=== PATIENT | male | born 1940 | race Caucasian/White ===

== ENCOUNTER 2023-09-18 13:08 | Emergency (ER) | payer MEDICARE, SELFPAY ==
[2023-09-18] VITALS (7 sets, daily range): BP systolic 78–105; BP diastolic 45–54; BMI 26.4
[2023-09-18] MEDS: TYLENOL 650 MG PO (13:26)
[2023-09-18 13:56] LABS: COVID-19 Antigen Negative (Negative)
--- NOTE | 2023-09-18 16:00 | ED.GENMED ---
History of Present Illness
General
Chief Complaint: Cold/Flu/URI Symptoms
Source: patient, spouse and family
Exam Limitations: none
Time Seen by Provider: 09/18/23 15:36
Nursing documentation reviewed up to this point in time: agreed with
Travel History
Have you had any contact with someone who has COVID-19?: Yes
Comment: yes
Do you have any symptoms of coronavirus? Fever > 100 degrees, chills, cough, shortness of breath, sore throat, loss of taste or smell, muscle aches, or headache?: Yes
Symptoms:: fever
History of Present Illness
History of Present Illness:
Patient to ED with complaint of fever, shaking chills, vomiting. Symptoms started this afternoon. states they are in the process of moving her from [facility]. He was diagnosed with pancreatic CA 2022. Whipple surgery 07/13. He had follow up MRI
earlier this bár[place] which confirmed recurance. He had an appointment with oncology at [facility] this AM. Reports becoming ill while there. Prior to arrival here he vomitec 2x. He denies any abdominal pain. Temp on arrival 102. Given 650mg tylenol in
triage.
Past History
Past History
ED Past Medical History: Cancer (pancreatic), GERD, Hypothyroidism and Other (pancreatitis08/2022)
ED Past Surgical History: Other (Whipple procedure 06/2022)
Review of Systems
Review of Systems
Allergies reviewed?: Yes
All Other Systems: ROS reviewed and negative except as documented in HPI and ROS
Constitutional: Reports fever and fatigue
EENT: Reports no symptoms
Respiratory: Reports no symptoms
Cardiac: Reports no symptoms
ABD/GI: Reports nausea and vomiting
: Reports no symptoms
Musculoskeletal: Reports edema (1+BLE (chronic))
Skin: Reports no symptoms
Neurological: Reports weakness
Psychiatric: Reports no symptoms
Phy Exam
General Physical Exam
General Presentation: well appearing
General age: appears stated age
General Skin: warm and dry
General Habitus: normal
General Mental: alert
Cardiovascular Exam
Cardiovascular Exam: regular rate/rhythm
Pulmonary Exam
Pulmonary Exam: no respiratory distress and chest non tender
Breath Sounds: Crackles: left lower and right lower
Gastrointestinal Exam
Gastrointestinal Exam: normal bowel sounds, non tender, soft and no organomegaly
Neurological Exam
Neurological Exam: alert, oriented x3, CN II-XII intact, no motor deficits and no sensory deficits
Musculoskeletal Exam
Musculoskeletal Exam: full ROM and neuro vasc intact
Skin Exam
Skin Exam: normal color, warm/dry and no rash
Psychiatric Exam
Psychiatric Exam: normal mood/affect
Course
Orders/Labs/Results
Orders:
Orders
09/18/23 13:23
Acetaminophen [Tylenol] 650 mg .ROUTE .STK-MED ONE
09/18/23 13:26
Acetaminophen [Tylenol] 650 mg PO NOW STA
09/18/23 13:33
COVID-19 Antigen Urgent
Source: Nasal Swab
09/18/23 15:52
0.9% Sodium Chloride 1000 ml [Nss] 1,000 ml IV BOLUS
CR Chest - 2 Views Urgent
Comment:
Reason For Exam: fever
09/18/23 16:05
Comprehensive Metabolic Panel Urgent
Blood Culture Q30M
TAVO Source: Blood/Venous
Specimen Description:
09/18/23 16:06
Complete Blood Count/With Diff Urgent
Lactic Acid Urgent
Blood Culture Q30M
TAVO Source: Blood/Venous
Specimen Description:
Influenza A+B Rapid Molecular Urgent
TAVO Source: Nasal Swab
Specimen Description:
09/18/23 16:08
Ondansetron Injectable [Zofran] 4 mg IV NOW STA
09/18/23 19:39
Amoxicillin 875 mg/Clav 125 mg [Augmentin 875 mg/125 mg] 1 tablet PO NOW STA
Doxycycline [Vibramycin] 100 mg PO NOW STA
Abnormal Lab Results
09/18/23 09/18/23
16:05 16:06
WBC 4.7 L 10^3/uL
(4.8-10.8)
RBC 2.82 L 10^6/uL
(4.70-6.10)
Hgb 7.9 L g/dL
(13.0-18.0)
Hct 23.2 L %
(39.0-52.0)
Plt Count 101 L 10^3/uL
(130-400)
Absolute Lymphs (auto) 0.1 L 10^3/uL
(1.2-3.4)
Neutrophils % 95.8 H %
(42.2-75.2)
Lymphocytes % 1.3 L %
(20.5-51.1)
Chloride 110 H mmol/L
(98-107)
Carbon Dioxide 21 L mmol/L
(22-30)
BUN 31 H mg/dl
(9-20)
Creatinine 1.5 H mg/dL
(0.7-1.3)
Total Protein 5.8 L g/dl
(6.3-8.2)
Albumin 3.0 L g/dl
(3.5-5.0)
09/18/23 16:06
09/18/23 16:05
Vital Signs
Initial and Last Documented VS:
Initial Vital Signs
Temp Pulse Resp BP Pulse Ox
102.1 F H 70 20 105/46 95
09/18/23 13:14 09/18/23 13:14 09/18/23 13:14 09/18/23 13:14 09/18/23 13:14
Last Documented Vital Signs
Temp Pulse Resp BP Pulse Ox
99.6 F 78 18 87/45 97
09/18/23 19:57 09/18/23 19:57 09/18/23 19:57 09/18/23 19:45 09/18/23 19:57
*Radiology
Radiology exam reviewed: radiology read reviewed
*Pulse Oximetry
Patient hypoxic: no
*Critical Care Note
Total Time (30-74mins, 75-104mins- exclusive of procedures): Not Applicable
Update Note
Update Note:
Patient improved with IVF and tylenol. Requesting discharge home. CXR with possible LLL pneumonia. Will start on augmentin and doxycycline. No hypoxemia. WIll discharge home at pateints request. Given isntructions on s/s to return to ED and he
is agreeable to plan. Labs compared to labs drawn earlier this month in [facility], [facility].
ED Attending Note
-
Portions of this chart may have been created with voice recognition software.� Occasional wrong word or��sound alike� substitutions may have occurred due to the inherent limitations of voice recognition software.
Discharge Plan
Departure
Patient Disposition: Home (Routine Discharge)
Date of Disposition: 09/18/23
Time of Disposition: 19:40
Patient with high blood pressure during this ER visit?: No
Condition: Good
Covid-19: Not Applicable
Discharge Problem:
Pneumonia
Instructions: Pneumonia
Prescriptions:
New
amoxicillin-pot clavulanate 875-125 mg tablet
1 tab PO BID Qty: 20 0RF
doxycycline hyclate 100 mg capsule
100 mg PO BID Qty: 20 0RF
Referrals:
UNKNOWN - PT DOES,NOT KNOW [Family Provider] -
Activity Restrictions/Additional Instructions:
Return to the emergency department immediately for any changes in/worsening of your symptoms.
Interventions
Interventions:
*Risk Screen - Suicide Last Done: 09/18/23 16:16
*General Assessment Last Done: 09/18/23 16:16
*Neglect/Abuse Screening Last Done: 09/18/23 16:16
ED- Fall Risk Assessment Last Done: 09/18/23 16:32
*ED COVID-19 Vaccine History Last Done: 09/18/23 16:16
*Nursing Disposition Last Done: 09/18/23 20:14
ED- Pulmonary Assessment Last Done: 09/18/23 16:32
Discharge Date and Time
Discharge Date/Time: 09/18/23 20:14
Print Language: HONG KONGER
[2023-09-18] MEDS: NSS 1000 IV (16:11)
[2023-09-18] MEDS: ZOFRAN 4 MG IV (16:21)
[2023-09-18 16:26] LABS: % Basophils 0.6 % (0-2); % Immature Granulocytes 0.4 % (0-0.5); % Lymphocytes 1.3 % (20.5-51.1); % Monocytes 1.9 % (1.7-9.3); % Neutrophils 95.8 % (42.2-75.2); Absolute Lymphocytes 0.1 10^3/uL (1.2-3.4); Absolute Monocytes 0.1 10^3/uL (0.1-0.6); Absolute Neutrophils 4.5 10^3/uL (1.4-6.5); Hematocrit 23.2 % (39.0-52.0); Hemoglobin 7.9 g/dL (13.0-18.0); Mean Corp Hgb Conc. 34.1 g/dL (33.0-37.0); Mean Corpuscular Volume 82.3 fL (80.0-94.0); Mean Platelet Volume 9.8 fL (7.4-10.4); Nucleated Red Blood Cells % 0 % (-); Platelet Count 101 10^3/uL (130-400); Red Blood Cell Count 2.82 10^6/uL (4.70-6.10); Red Cell Dist. Width 14.4 % (11.5-14.5); White Blood Cell Count 4.7 10^3/uL (4.8-10.8)
[2023-09-18 16:38] LABS: Lactic Acid 1.3 mmol/L (0.7-2.0)
[2023-09-18 16:41] LABS: ALT (SGPT) 15 U/L (0-50); AST (SGOT) 19 U/L (17-59); Alkaline Phosphatase 87 U/L (38-126); Blood Urea Nitrogen 31 mg/dl (9-20); Calcium 8.4 mg/dl (8.4-10.2); Carbon Dioxide 21 mmol/L (22-30); Chloride 110 mmol/L (98-107); Estimated Creatinine Clearance 35 ml/min; Glucose 83 mg/dl (70-99); Potassium 3.9 mmol/L (3.5-5.1); Sodium 136 mmol/L (135-145); Total Bilirubin 0.6 mg/dl (0.2-1.3); Total Protein 5.8 g/dl (6.3-8.2); eGFR 45.91
[2023-09-18] MEDS: VIBRAMYCIN 100 MG PO (19:44)
[2023-09-18] MEDS: AUGMENTIN 875 MG/125 MG 1 TABLET PO (19:44)
--- NOTE | 2023-09-18 20:03 | EDRN ---
Nida Parkinson aware of pts BP prior to discharge, pt not willing to stay in hospital. Pt taken to bathroom in wheelchair prior to d/c.
== END 2023-09-18 20:14 | disposition home or self-care (01) ==
LOC: EMR 13:08
PROVIDERS: Emergency Medicine; Nurse Practitioner; EMERGENCY PHYSICIAN Emergency Medicine
DX: J18.9 Pneumonia, unspecified organism (principal); E03.9 Hypothyroidism, unspecified; K21.9 Gastro-esophageal reflux disease without esophagitis
CPT/HCPCS: 99283; 96374; 71046; 80053; 83605; 85025; 87040; 87149; 87186; 87205; 87502; 87811

== ENCOUNTER 2023-09-19 04:36 | Inpatient (IN) | payer MEDICARE, SELFPAY ==
[2023-09-19] VITALS (42 sets, daily range): BP systolic 62–137; BP diastolic 49–77; BMI 27.4; BMI 25.9
--- NOTE | 2023-09-19 03:12 | ED.GENMED ---
History of Present Illness
General
Chief Complaint: Blood Pressure Problem
Source: patient
Time Seen by Provider: 09/19/23 03:11
Nursing documentation reviewed up to this point in time: agreed with
Travel History
Have you had any contact with someone who has COVID-19?: No
Do you have any symptoms of coronavirus? Fever > 100 degrees, chills, cough, shortness of breath, sore throat, loss of taste or smell, muscle aches, or headache?: No
History of Present Illness
History of Present Illness:
83-year-old male presents to the emerged part with low blood pressure. Was seen in the emergency department earlier today and was to be admitted but patient refused. Patient initially had fever, chills, vomiting. Patient was recently diagnosed
with pancreatic cancer and had a Whipple procedure 1 year ago. Patient had an MRI recently which showed that the cancer was back. Patient had seen [place] [facility] earlier yesterday he was vomiting while at the office.
Past History
Past History
ED Past Medical History: Cancer (pancreatic), GERD, Hypothyroidism and Other (pancreatitis08/2022)
ED Past Surgical History: Other (Whipple procedure 06/2022)
Review of Systems
Review of Systems
Allergies reviewed?: Yes
All Other Systems: ROS reviewed and negative except as documented in HPI and ROS
Constitutional: Reports no symptoms
EENT: Reports no symptoms
Respiratory: Reports no symptoms
Cardiac: Reports no symptoms
ABD/GI: Reports no symptoms
: Reports no symptoms
Musculoskeletal: Reports no symptoms
Skin: Reports no symptoms
Neurological: Reports dizzy and weakness
Endocrine: Reports no symptoms
Hematologic/Lymphatic: Reports no symptoms
Psychiatric: Reports anxiety
Phy Exam
General Physical Exam
General Presentation: mild distress
General age: appears older than age
General Skin: warm and dry
General Habitus: normal and elderly
General Mental: alert
General Hydration: appears well hydrated
ENT Exam
ENT Exam: EOMI, pharynx normal, neck supple and normocephalic
Eye Exam
Eye Exam: PERRL, cornea clear and conjunctiva normal
Cardiovascular Exam
Cardiovascular Exam: regular rate/rhythm, no edema, no murmur and normal peripheral pulses
Pulmonary Exam
Pulmonary Exam: lungs clear, no respiratory distress, no rales, no crackles, no rhonchi, no stridor, no wheezing and no cough
Gastrointestinal Exam
Gastrointestinal Exam: normal bowel sounds, non tender, soft, no organomegaly, no pulsatile mass and non distended
Neurological Exam
Neurological Exam: alert, oriented x3, no motor deficits and speech normal
Musculoskeletal Exam
Musculoskeletal Exam: full ROM and no edema
Skin Exam
Skin Exam: normal color, warm/dry, no rash and no petechia
Psychiatric Exam
Psychiatric Exam: normal mood/affect
Course
Orders/Labs/Results
Orders:
Orders
09/19/23 03:09
EKG [Electrocardiogram (*1)] Urgent
Reason for Study: Fatigue / Weakness
EKG- Treatment ONCE
Vital Signs
Initial and Last Documented VS:
Initial Vital Signs
Temp Pulse Resp BP Pulse Ox
98.8 F 75 18 87/54 94
09/19/23 02:58 09/19/23 02:58 09/19/23 02:58 09/19/23 02:58 09/19/23 02:58
Last Documented Vital Signs
Temp Pulse Resp BP Pulse Ox
98.8 F 75 18 87/54 94
09/19/23 02:58 09/19/23 02:58 09/19/23 02:58 09/19/23 02:58 09/19/23 02:58
*Critical Care Note
Total Time (30-74mins, 75-104mins- exclusive of procedures): Not Applicable
ED Attending Note
-
Portions of this chart may have been created with voice recognition software.� Occasional wrong word or��sound alike� substitutions may have occurred due to the inherent limitations of voice recognition software.
Discharge Plan
Departure
Patient Disposition: Admit
Date of Disposition: 09/19/23
Time of Disposition: 03:17
Presentation/result/management discussed w/ accepting MD/DO: Hospitalist
Condition: Fair
Discharge Problem:
Weakness, Acute hypotension
Prescriptions:
No Action
amoxicillin-pot clavulanate 875-125 mg tablet
1 tab PO BID Qty: 20 0RF
doxycycline hyclate 100 mg capsule
100 mg PO BID Qty: 20 0RF
Interventions
Interventions:
*Risk Screen - Suicide Last Done: 09/19/23 02:58
*General Assessment Last Done: 09/19/23 02:58
*Neglect/Abuse Screening Last Done: 09/19/23 02:58
ED- Fall Risk Assessment Last Done: 09/19/23 02:58
Discharge Date and Time
Print Language: ICELANDIC
--- NOTE | 2023-09-19 03:52 | HPS.HSE ---
Addendum entered and electronically signed by Mario Montelongo MD 09/19/23 05:00:
Abnormal Lab Results
09/19/23
03:49
RBC 2.40 L
Hgb 6.6 L*
Hct 20.1 L*
MCHC 32.8 L
Absolute Lymphs (auto) 0.2 L
Neutrophils % 91.8 H
Lymphocytes % 2.7 L
Chloride 113 H
Carbon Dioxide 18 L
BUN 36 H
Creatinine 1.8 H
Glucose 101 H
Calcium 7.8 L
Total Protein 5.0 L
Albumin 2.5 L
Interval Hgb dropped
Hypotension
Concern for intra abdominal bleed
- Urgent CT AP ordered
- T & C
- Blood consent
- Blood 1 PRBC
- GS consult
Original Note:
Family Physician
-
Family Physician:
Chief Complaint
-
weak and low BP
History of Present Illness
HPI
83M recently Dxed MRI evidence of CA pancreatic recurrence. He was Dxed with pancreatic CA in 2022 and had Whipple surgery 07/13. Pending appointment with [facility].
He was seen at ER earlier with fever of 102, chills and rigors , vomited and hypotensive. He was treated Tylenol and IVF.
CXR suggest possible LLL pneumonia given on Augmentin and doxycycline and DC'd from ER per patient request.
Then retuned to ER at this hour for weakness and pale.
As per EMS BP 80/40. As low as SBP 60.
Medical History
Past Medical History
Past Medical History: Reports Cancer (recurrent of Pancreatic CA )
Additional Past Medical History:
, GERD, Hypothyroidism and Other (pancreatitis08/2022)
Past Surgical History: Reports Other ( (Whipple procedure 06/2022))
Social History
Tobacco: Non-smoker
Alcohol: None
Drug: None
Family History
Family History: Not pertinent
Allergies / Home Medications
Allergies reflects when Allergies were last updated in [facility].
Home Medications with original date entered in [facility]
Allergy/Medication List:
Allergies
Allergy/AdvReac Type Severity Reaction Status Date / Time
Sulfa (Sulfonamide Allergy Unknown Verified 09/19/23 02:56
Antibiotics)
Home Medications
amoxicillin 875 mg-potassium clavulanate 125 mg tablet 1 tab PO BID #20 tabs 09/18/23
doxycycline hyclate 100 mg capsule 100 mg PO BID #20 caps 09/18/23
Review of Systems
-
Constitutional: Reports Fatigue
EENT: Reports No Symptoms
Respiratory: Reports No Symptoms
Cardiac: Reports No Symptoms
Abdomen/GI: Reports Abdominal Pain and Vomiting
: Reports No Symptoms
Musculoskeletal: Reports No Symptoms
Skin: Reports No Symptoms
Neurological: Reports Weakness
Endocrine: Reports No Symptoms
Hematologic/Lymphatic: Reports No Symptoms
Psych: Reports No Symptoms
Physical Exam
Vital Signs
Vital Signs
Temp Pulse Resp BP Pulse Ox
98.8 F 75 18 87/54 94
09/19/23 02:58 09/19/23 02:58 09/19/23 02:58 09/19/23 02:58 09/19/23 03:24
Physical Exam
General: No Apparent Distress and Conversant
HEENT: NormoCephalic, Anicteric and Other (faial vertiligo )
Respiratory: Clear and Other (wearing O2 ); No Wheezes, Rales or Rhonchi
Cardiac: S1/S2 and Regular Rhythm
GI: Soft, Non Tender, Non Distended and Normal Bowel Sounds
Rectal: Deferred by Provider
Genito-urinary: Deferred by me
Musculoskeletal: No Edema
Skin: Warm
Neuro: AO x 3
Psych: Calm
Laboratory Results
-
see 1srt ER visit labs
Data Reviewed
-
Lab Data: Labs Reviewed by me
Old Records: Reviewed
Impression/Plan
-
Reviewed VS: T max 102,1 . Tc 98.8 HR 75 BP 87/55 POx 94 on RA
Data
WCC 4.7
Hgb 7.9
Plt 101
Cl 110
CO2 21
BUN 31
Cr 1.5
eGFR 45
LA 1.3
09/18/23 CXR:
Findings suggest possibility of small posterior medial left lower lobe infiltrate.
ASSESSMENT & PLAN
Hi grade fever and hypotension
SIRS picture +/_ shock pathophysiology vs chr hypotension
Source of sepsis : Intraabdominal vs. PNA ?
- CT AP
- check PCT
- Empiric IV vanco and Zosyn
- LR IVF sepstic bolus
- Pressor if MAP < 65
- BCx sent on first ER visit
- ID consult
- Business Analysis Analyst consult
Renal insufficiency - suspect MARY due to septic shoclk
- LR IV septic bolus and trend Cr
Recently Dxed MRI evidence of CA pancreatic recurrence.
HX pancreatic CA in 2022 and had Whipple surgery 07/13.
- Pending appointment with [facility].
Severe anemia
No prior data
- trend Hgb
DVT Px: SQH
Code: Full code
ICU
[2023-09-19 04:05] LABS: % Basophils 0.3 % (0-2); % Eosinophils 0.1 % (0-6); % Immature Granulocytes 0.4 % (0-0.5); % Lymphocytes 2.7 % (20.5-51.1); % Monocytes 4.7 % (1.7-9.3); % Neutrophils 91.8 % (42.2-75.2); Absolute Lymphocytes 0.2 10^3/uL (1.2-3.4); Absolute Monocytes 0.3 10^3/uL (0.1-0.6); Absolute Neutrophils 6.5 10^3/uL (1.4-6.5); Mean Corp Hgb Conc. 32.8 g/dL (33.0-37.0); Mean Corpuscular Hgb 27.5 pg (27.0-31.0); Mean Corpuscular Volume 83.8 fL (80.0-94.0); Nucleated Red Blood Cells % 0 % (-); Red Cell Dist. Width 14.5 % (11.5-14.5)
[2023-09-19 04:24] LABS: Hematocrit 20.1 % (39.0-52.0); Hemoglobin 6.6 g/dL (13.0-18.0)
[2023-09-19 04:41] LABS: ALT (SGPT) 21 U/L (0-50); AST (SGOT) 32 U/L (17-59); Albumin 2.5 g/dl (3.5-5.0); Alkaline Phosphatase 80 U/L (38-126); Blood Urea Nitrogen 36 mg/dl (9-20); Calcium 7.8 mg/dl (8.4-10.2); Carbon Dioxide 18 mmol/L (22-30); Chloride 113 mmol/L (98-107); Estimated Creatinine Clearance 30 ml/min; Glucose 101 mg/dl (70-99); Potassium 4.1 mmol/L (3.5-5.1); Sodium 136 mmol/L (135-145); Total Bilirubin 0.6 mg/dl (0.2-1.3); eGFR 36.89
[2023-09-19] MEDS: ZOSYN 50 IV ×4 (05:07→23:29)
[2023-09-19] MEDS: LR 1000 IV ×2 (05:08→19:41)
[2023-09-19 05:24] LABS: Mean Platelet Volume 9.9 fL (7.4-10.4)
[2023-09-19 05:25] LABS: Absolute Neutrophils -Man Diff 6.6 10^3/uL (1.4-6.5); Band Neutrophils 22 % (0-3); Platelet Count 89 10^3/uL (130-400); Segmented Neutrophils 73 % (42-75)
[2023-09-19 05:26] LABS: Lymphocytes 3 % (20-51); Monocytes 2 % (2-9); Normal RBC Morphology No; Platelets Checked Yes
[2023-09-19 05:30] LABS: Anisocytosis 1+
[2023-09-19 05:32] LABS: Acanthocytes 2+; Tear Drop Red Blood Cells Slight; Total Cells Counted 100
--- NOTE | 2023-09-19 05:38 | PTCARENOTE ---
Pt received from ED via stretcher, ICU admit room 3367. Ox3. B/L LE +2 edema. AV paced. Palpable pulses. Bowel sounds hypoactive, last BM 09/16. Per pt no bloody stool or emesis. CT abd/pelv ordered with PO and IV contrast ordered. No urine output,
condom cath applied. Pt uses incontinence briefs at baseline. Pt states that he fell 09/16, small skin tear to right side of forehead. On admission DTIs noted to B/L ischium, dark purple surrounded by pink blanchable area---see wound flowsheet.
[2023-09-19 05:56] LABS: Lactic Acid 0.8 mmol/L (0.7-2.0)
[2023-09-19] MEDS: VANCOCIN 540 MG IV (06:03)
[2023-09-19] MEDS: OMNIPAQUE 50 ML PO (06:30)
--- NOTE | 2023-09-19 06:36 | W.PN.HOSP.TC ---
Addendum entered and electronically signed by Lauren Weiss MD 09/19/23 17:58:
Addendum
reviewed Notes from [facility]
Blood culture positive for E coli, will repeat Blood cultures in am, source likely GI
for paracentesis in am
d/w family at bed side
End
Original Note:
Today's Communication/Plan
-
.
Assessment / Plan
Assessment / Plan
Physical Exam
General: No Apparent Distress and Conversant. Chronically ill looking.
HEENT: Normocephalic, Anicteric.
Respiratory: Limited with no wheezes.
Cardiac: S1/S2
GI: Soft, Non Tender, Non Distended and Normal Bowel Sounds
Rectal: No rectal bleeding
Genito-urinary: No Hematuria
Musculoskeletal: No Edema
Skin: Warm, no scratch velázquez.
Neuro: AO x 3, he followed commands.
Psych: Calm
# Shock , possible combination of hemorrhagic and septic shock
Will treat both for now
Give RBCs , will do total 3 units, recheck H&H after transfusion
Empiric IV ABx, f/w cultures. Check urine test.
CT and chest x ray did not show definitive consolidation, pt denies aspiration event.
Lactic acid normal. No leukocytosis.
# Likely SIRS and he met criteria of Sepsis/ septic shock POA
No recurrent fevers this morning
He is on Nasal O2, he denies underlying lung disease ( never used inhalers/oxygen)
Empiric IV ABx, f/w cultures
# Acute kidney injury
We do not know baseline, will try to get records
c/w IVF
CT A/P no Hydronephrosis
# Recently Dxed MRI evidence of CA pancreatic recurrence.
HX pancreatic CA in 2022 and had Whipple surgery 07/13 down in [place].
- Pending appointment with [facility].
# Thrombocytopenia
# S/P Afib/ Pacemaker and watchman device
Will get records
# Code status, he wanted full code
Total critical time spent to see the patient, examine the patient on the floor, review data and lab results, discuss treatment plan with patient, ICU doctor, nursing staff around 75 minutes
Anticipated Discharge: > 48 hours
Subjective/Interval History
-
Date of Service: September 19, 2023
Pt denies abd pain or sob
Night team: no pain issues, no active bleeding
Objective Data
-
Labs:
Laboratory Results
09/19/23
03:49
WBC 7.0
Hgb 6.6 L*
Hct 20.1 L*
Plt Count 89 L
Sodium 136
Potassium 4.1
Chloride 113 H
Carbon Dioxide 18 L
BUN 36 H
Creatinine 1.8 H
Glucose 101 H
Calcium 7.8 L
Total Bilirubin 0.6
AST 32
ALT 21
Alkaline Phosphatase 80
Vital Signs:
Vital Signs
Temp Pulse Resp BP Pulse Ox
98.8 F 60 17 109/59 98
09/19/23 02:58 09/19/23 05:30 09/19/23 05:30 09/19/23 05:30 09/19/23 05:00
--- NOTE | 2023-09-19 07:50 | W.PN.UPDATE ---
Update Note
Progress Note Update
Full consult to follow:
83M presented yesterday with fever, rigors, Dx PNA. Per pt request he went home with PO abx. took BP at home and called rescue. He admits to lacerations of his fingers getting off the plane 2 days ago with significant bleeding per his
impression. cashier wrapper at the airport responded and achieved hemostasis with external bandages. He denies blood thinners. On admit hypotensive and anemic. Vitals stabilized after PRBC transfusion. Denies abd pain at any point. Dneies n/v. Abd exam benign,
soft nt partially reducible ventral hernia and RIH. Known hx of philipp jonesippdaylin, reportedly positive margins and now with recurrence of panc CA and plan for [facility] adjuvant therapy. Surgery consulted with concern for intra-abdominal bleed. For stat CT
A/P to r/o intra-abdominal bleed.
--- NOTE | 2023-09-19 09:01 | CON.INTV ---
Consultation
Consultation Request
Date/Time Consultation Requested: 09/19/2023444
Date/Time Consultation Performed: 09/19/2023 - 854
Requesting Provider: Dr. Montelongo
Performing Provider: Dr. Valentino
Reason for Consultation: Anemia/Hypotension
Medical History
-
Chief Complaint: Generalized weakness and hypotension
History of Present Illness:
83-year-old male non-smoker with a past medical history of pancreatic cancer with recurrence with a history of Whipple's procedure in June 2022, history of CVA, COPD, history of pancreatitis in August 2022, GERD and hypothyroidism who presents with
chills, low blood pressure and weakness. They had just moved down from [place] down to [place] to be closer to family given patient's history of recurrent pancreatic cancer. They saw a physician at [facility] yesterday and after the
appointment the patient developed chills. thought that he was having anxiety attack so he was given Xanax but he vomited this up. He actually did come to the ER on 09/18/2023, and there was a suspected left lower lobe pneumonia and he was
discharged on Augmentin and doxycycline. His Hb at that time was 7.9 + platelets were 101, with blood cultures collected and COVID antigen and flu swab negative. They had gone home as the patient was hungry and they thought that he would possibly
improve, however he did not and his blood pressure was low in the middle the night with his SBP in the 80s. When he came back to the ER his BP was 87/54, he was saturating 94% on room air and he was afebrile to 98.8 �F. Labs showed anemia to 6.6,
platelets 89, creatinine worsened to 1.8, lactate was normal at 0.8, and given concern for his low blood pressure with anemia he was admitted to the ICU for further care. Critical care services consulted for additional management/recommendations.
Pt seen this AM. He is sleepy this AM and responds appropriately. He is on NC at 3L/min, HR 61, SpO2 98% on 3L/min, BP 107/59. A CT abdomen pelvis was obtained after general surgery was consulted due to possible pneumoperitoneum. There was mild
ascites without typical density for hemorrhagic products, also small bilateral pleural effusions, small pericardial effusion, lower lobe atelectasis, and mild BPH. Also focal bladder wall thickening and a splenic artery aneurysm measuring 2 cm.
is at bedside and I answered all of her questions. Patient currently denies headache, chest pain, abdominal pain, fevers or chills.
PMhx: Pancreatic cancer diagnosed in June 2022 at [facility] in [place] s/p Whipple procedure complicated by recurrence, history of CVA in October 2022, history of pancreatitis in August 2022, GERD, hypothyroidism, BPH
PSHx: Whipple procedure (06/2022)
Past Medical History
Past Medical History: Other (Above as per HPI)
Past Surgical History: Other (Above as per HPI)
Social History
Tobacco: Non-smoker
Alcohol: None
Drug: None
Family History
Family History: Reviewed & Not Pertinent
Allergies / Home Medications
Allergies
Allergy/AdvReac Type Severity Reaction Status Date / Time
Sulfa (Sulfonamide Allergy Unknown Verified 09/19/23 02:56
Antibiotics)
Home Medications
�Medication �Instructions �Recorded �Confirmed �Last Taken �Type
amoxicillin 875 mg-potassium 1 tab PO BID #20 tabs 09/18/23 Unknown Rx
clavulanate 125 mg tablet
doxycycline hyclate 100 mg capsule 100 mg PO BID #20 caps 09/18/23 Unknown Rx
acetaminophen 500 mg tablet 1,000 mg PO Q6H PRN Pain 09/19/23 09/19/23 Unknown History
cyanocobalamin (vitamin B-12) 1,000 mcg PO DAILY 09/19/23 09/19/23 Unknown History
1,000 mcg capsule
escitalopram oxalate 10 mg tablet 10 mg PO DAILY 09/19/23 09/19/23 Unknown History
ferrous sulfate 27 mg iron tablet 27 mg PO DAILY 09/19/23 09/19/23 Unknown History
furosemide 20 mg tablet 40 mg PO DAILY 09/19/23 09/19/23 Unknown History
levothyroxine 112 mcg tablet 112 mcg PO DAILY 09/19/23 09/19/23 Unknown History
nrtsfe-atlnpeea-kamdkog 3 cap PO TID 09/19/23 09/19/23 Unknown History
36,000-114,000-180,000 unit
capsule,delay rel (Creon)
magnesium 500 mg tablet 15 mg PO DAILY 09/19/23 09/19/23 Unknown History
pantoprazole 40 mg tablet,delayed 40 mg PO DAILY 09/19/23 09/19/23 Unknown History
release
potassium chloride 10 mEq 10 meq PO DAILY 09/19/23 09/19/23 Unknown History
tablet,extended release (Klor-Con)
pramipexole 0.5 mg tablet 0.5 mg PO HS 09/19/23 09/19/23 Unknown History
tamsulosin 0.4 mg capsule 0.4 mg PO BID 09/19/23 09/19/23 Unknown History
Review of Systems
-
History Source: Patient
All other systems: Negative unless noted
Vitals / Labs / Diagnostic Testing
Vital Signs
Temp Pulse Resp BP Pulse Ox
98.3 F 71 18 104/55 100
09/19/23 07:36 09/19/23 08:30 09/19/23 08:30 09/19/23 08:00 09/19/23 08:00
Lab Data
09/19/23 03:49
Diagnostic Testing:
Physical Exam
-
HEENT: Normocephalic and Anicteric
Cardiovascular: S1/S2 and Peripheral Edema (+1 lower extremity edema)
Respiratory: Wheeze (negative), Rales (Bibasilar), Rhonchi (negative) and Non-Labored Respirations
GI: Soft, Non Distended and Non Tender
Neurology: AO x 3 and Tremors (n)
Skin: Warm and Dry
General: Comfortable, Fever (negative) and Chills (negative)
Assessment
-
Assessment: 83-year-old male non-smoker with a past medical history of pancreatic cancer with recurrence with a history of Whipple's procedure in June 2022, history of CVA, COPD, history of pancreatitis in August 2022, GERD and hypothyroidism who
presents with chills, low blood pressure and weakness. They had just moved down from [place] down to [place] to be closer to family given patient's history of recurrent pancreatic cancer. They saw a physician at [facility] yesterday and
after the appointment the patient developed chills. thought that he was having anxiety attack so he was given Xanax but he vomited this up. He actually did come to the ER on 09/18/2023, and there was a suspected left lower lobe pneumonia and
he was discharged on Augmentin and doxycycline. His Hb at that time was 7.9 + platelets were 101, with blood cultures collected and COVID antigen and flu swab negative. They had gone home as the patient was hungry and they thought that he would
possibly improve, however he did not and his blood pressure was low in the middle the night with his SBP in the 80s. When he came back to the ER his BP was 87/54, he was saturating 94% on room air and he was afebrile to 98.8 �F. Labs showed anemia
to 6.6, platelets 89, creatinine worsened to 1.8, lactate was normal at 0.8, and given concern for his low blood pressure with anemia he was admitted to the ICU for further care. Critical care services consulted for additional
management/recommendations.
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
Impression:
#Sepsis with E. coli bacteremia, suspicious for intra-abdominal source, possibly related to his history of recurrent pancreatic cancer s/p Whipple's procedure
#Acute anemia - doubt he has hemoperitoneum and this is likely due to sepsis with bone marrow suppression
#Thrombocytopenia
#Bilateral pleural effusions with small pericardial effusion and +1 lower extremity edema, suspicious for volume overload
#Elevated creatinine suspicious for MARY (however creatinine and BUN baseline unknown, but apparently he has a history of CKD)
#Hypoalbuminemia
#Abnormal CXR with retrocardiac opacity likely due to atelectasis in setting of small pleural effusions (seen on CT Abd/Pelvis)
#Ventral + right inguinal hernias without evidence for obstruction
#Reported history of COPD, quit smoking tobacco in 2022
#Recurrent pancreatic cancer s/p Whipple's procedure
Plan:
- Broad-spectrum antibiotics with ID consult
� Follow-up blood cultures species and sensitivities
- Consult IR for paracentesis to rule out SBP
� Trend H&H and transfuse to keep Hb >7 g/dL, plt >50 K
- General surgery consulted - recs appreciated
- Gentle IVF as he has bilateral pleural effusions, small pericardial effusion and has +1 lower extreme edema so we will need to caution against worsening hypervolemia
- Maintain SpO2 >90-94%
- Maintain MAP>65
- Replete electrolytes with K>4, Mg>2
- Maintain euglycemia with goal BG 140-180
- Renally dose all medications/ABx
- Ok to resume his home meds
- Ok for PO diet
- prn nebulized bronchodilators
- Incentive spirometer
- DVT ppx - in setting of acute anemia, hold chemical DVT prophylaxis for now until Hb stable for >48 to 72 hours and there is no clinical signs of bleeding
Critical care statement: A total of 40 minutes of critical care time was provided for this patient today. This includes management of unstable vital signs, evaluation of the patient at bedside, reviewing the patient's pertinent medical records
including radiographs, microbiology, laboratory evaluations, and discussion with primary team, consultants, pharmacy, nutrition, physical therapy, case management, charge nurse, critical care nursing, and respiratory therapy.
Data:
CT Abd/Pelvis with OR andn IV contrast 09-19-2023:
Bowel containing ventral and right inguinal hernias. No evidence of intestinal obstruction. Oral contrast reaches the right colon. Fluid is associated with each hernia. Therefore, incarceration/strangulation cannot be excluded.
Mild abdominopelvic fluid probably ascites. Not the typical density for hemorrhagic products. However, all blood cannot be excluded..
Small pericardial effusion.
Small bilateral pleural effusions.
Mild left lower lung and minimal right lower lobe probable atelectasis.
Mild diverticulosis. No evidence of acute diverticulitis.
Mild fecal material in the colon.
Focal bladder wall thickening. Cystoscopy recommended when the patient is able
Mild prostate hypertrophy.
Postsurgical change of the stomach.
Splenic artery aneurysm measuring 2 cm.
--- NOTE | 2023-09-19 09:13 | CON.ID ---
Consultation
-
Date/Time Consultation Requested: 09/19/23 4:45
Date/Time Consultation Performed: 09/19/23 9:13
Requesting Provider: Dr Montelongo
Performing Provider: Dr Villatoro
Reason for Consultation: SIRS with shock syptome PNA or intraabdominal
Chief Complaint / Past History
Chief Complaint
weak and low BP
History of Present Illness
Mr Tesfaye is an 83 year old male with history of pancreatic cancer s/p whipple 07/13 with positive margins and due to recurrent strokes he was not a candidate for chemotherapy, he was recently diagnosed with recurrence - pending start of adjuvant
therapy. He presented here last evening for fever to 102, chills, rigors, vomiting and hypotension. Patient was seen in the ER and initially requested DC he was prescribed augmentin and doxycycline for possible LLL pneumonia however returned later
the same evening for weakness, pallor and hypotension via EMS after noted hypotension at home and called EMS.
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
small skin tear on the scalp.
Of note they just moved up from [place] in [place] and past health care was at [facility]. Currently staying in a hotel pending finding a place to stay.
Since arrival, tmax 102.1 orally no further fevers, hypotension resolved with IVF - he has not required pressors thus far, wbc on first visit 4.7 today 7.0, hgb 7.9 this am 6.6, plt 89, L shift is noted, cr unknown baseline yesterday 1.5 today 1.8,
covid ag neg, CXR possible LLL infiltrate, CT ab/p: mild left lower lobe and minimal right lower lobe consolidation probably atelectasis, questionable ventral and inguinal hernia strangulation, mild ascites/pericardial effusion/pleural effusions,
focal bladder wall thickening - in sum no definitive focal infectious process, Seen by gen surgery with concern for GI bleeding and CT was ordered. Currently on vancomycin and zosyn, blood cultures x2 at the same time are positive for GNR in both
aerobic and anaerobic bottles, ID is consulted for assistance with managment.
Past History
Additional Past Medical History:
hemorrhagic stroke x3, GERD, Hypothyroidism and Other (pancreatitis 08/2022)
Additional Past Surgical History:
Whipple procedure 06/2022, pacemaker, watchman
Allergy History:
Sulfa (Sulfonamide Antibiotics) Allergy (Verified 09/19/23 02:56)
Unknown
Medications Reviewed: Yes
Social History
Tobacco: Non-Smoker
Alcohol: None
Personal:
Living: Other (Hotel - pending finding housing)
Family History
Family History: Not Pertinent
Review of Systems
Review of Systems
General: Fever and Chills
unable to obtain due to the condition of the patient - obtunded
Vital Signs
Temp Pulse Resp BP Pulse Ox
98.3 F 71 18 104/55 100
09/19/23 07:36 09/19/23 08:30 09/19/23 08:30 09/19/23 08:00 09/19/23 08:00
Physical Exam
Physical Exam
Constitutional: No Acute Distress
Cardiovascular: Regular Rate and S1/S2; Negative Murmur or Rub
Pulmonary: Clear and Symmetric; Negative Wheezes, Rales or Rhonchi
Gastrointestinal: Soft, Non Tender, Non Distended and Normal Bowel Sounds
Genito-Urinary: Other (R inguinal hernia supple, no erythema, warmth or tenderness; ventral hernia reducible, not tender or firm or red)
Skin: Warm and Dry; Negative Rash or Jaundice
Wound: Other (small lacerations fingers, scalp and L knee - no erythema, warmth, tenderness or drainage from any of these)
Neurological: Negative Awake
Lines: Other (pacemaker - no erythema, warmth tenderness or drainage)
Lab / Diagnostic Study Results
05/29/24 03:49
Abs Immat Gran (auto) 0.0 10^3/uL (0-0.05) 09/19/23 03:49
Absolute Neuts (auto) 6.5 10^3/uL (1.4-6.5) 09/19/23 03:49
Absolute Lymphs (auto) 0.2 10^3/uL (1.2-3.4) L 09/19/23 03:49
Absolute Monos (auto) 0.3 10^3/uL (0.1-0.6) 09/19/23 03:49
Absolute Basos (auto) 0.0 10^3/uL (0-0.2) 09/19/23 03:49
Total Counted 100 09/19/23 03:49
Immature Gran % 0.4 % (0-0.5) 09/19/23 03:49
Neutrophils % 91.8 % (42.2-75.2) H 09/19/23 03:49
Lymphocytes % 2.7 % (20.5-51.1) L 09/19/23 03:49
Monocytes % 4.7 % (1.7-9.3) 09/19/23 03:49
Eosinophils % 0.1 % (0-6) 09/19/23 03:49
Basophils % 0.3 % (0-2) 09/19/23 03:49
Abs Neuts (Manual) 6.6 10^3/uL (1.4-6.5) H 09/19/23 03:49
Segmented Neutrophils 73 % (42-75) 09/19/23 03:49
Band Neutrophils 22 % (0-3) H 09/19/23 03:49
Lymphocytes (Manual) 3 % (20-51) L 09/19/23 03:49
Lactic Acid Cancelled 09/19/23 16:45
Assessment / Plan
Gram Negative Bacteremia
MARY +/- CKD
Anasarca
Recurrence of pancreatic cancer
- gram negative bacteremia typically does not require repeat blood cultures; patient not actively on immunosuppressive agents and shock responding to IVF, follow clinically
- will obtain UA reflex to culture, aerobic pathogen may be overgrowing the anaerobic bottle as well
- sputum culture ordered - though most likely atelectasis based on CT scan, patient may not be able to provide a sample
- agree with zosyn at this time, stop vancomycin
- follow clinically
[2023-09-19] MEDS: LR IV (09:50)
[2023-09-19] MEDS: NSS (PRESERVATIVE FREE) 10 ML IV (09:50)
[2023-09-19] MEDS: PROTONIX IV 40 MG IV (09:50)
--- NOTE | 2023-09-19 10:10 | PTCARENOTE ---
1 unit PRBC completed. Second unit requested from blood bank
--- NOTE | 2023-09-19 11:13 | CM ---
CM following re: discharge planning.
Discussed in Rounds, reviewed pt's chart, met with pt. Pt's daughter Diana and son in law at bedside.
Pt is an 83 year old male, admitted with primary dx of Shock , possible combination of hemorrhagic and septic shock.
Per daughter, pt just moved to [place] from [place] with a plan to move to [facility] in [facility] in September and pt will stay temporary in son's house in [place]: [place], with no steps, there is a ramp. Per daughter, all paperwork to move to
[facility] in [place] has been completed and both pt and his spouse are approved to move in there in September.
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 Per daughter, pt is very weak right now and family feels that pt might be able to go to a SNF for a short term rehab or pt might need VN services at
discharge. Per daughter, pt has 3 supportive children and they live in [facility]. Per daughter, if pt qualifies for SNF she prefers [facility].
PT and OT evaluations requested to determine a level of care at discharge.
PCP: Per daughter, pt just moved to [place] and she is working on getting PCP
Pharmacy: [facility].
D/C plan: Plan A: [facility] if recommended by PT/OT. Plan B: home to son's house in [facility] with VN services.
CM will follow with discharge plan updates as hospitalization progresses
[2023-09-19 11:19] LABS: Urine Albumin Trace (Neg - Trace); Urine Bilirubin 1+ (Negative); Urine Character Clear (Clear); Urine Color Amber; Urine Glucose Negative (Negative); Urine Ketone Trace (Negative); Urine Leukocyte Trace (Negative); Urine Nitrite Negative (Negative); Urine Occult Blood Trace (Negative); Urine Specific Gravity 1.015 (<1.030); Urine Urobilinogen 1+ (Neg - 1+)
--- NOTE | 2023-09-19 12:00 | PTCARENOTE ---
Pt drowsy. Second unit of PRBC infusing at this time. No void today. Pt's stated he felt urge but unable to go last night. Bladder scan showed >320. Straight cath for 250ml travis urine. All other assessments unchanged.
[2023-09-19 12:26] LABS: Urine Bacteria Few (Negative)
[2023-09-19 16:15] LABS: Hematocrit 29.3 % (39.0-52.0); Mean Corp Hgb Conc. 33.4 g/dL (33.0-37.0); Mean Corpuscular Hgb 28.7 pg (27.0-31.0); Mean Corpuscular Volume 85.7 fL (80.0-94.0); Platelet Count 80 10^3/uL (130-400); Red Blood Cell Count 3.42 10^6/uL (4.70-6.10); Red Cell Dist. Width 14.6 % (11.5-14.5); White Blood Cell Count 6.2 10^3/uL (4.8-10.8)
[2023-09-19 16:17] LABS: Hemoglobin 9.8 g/dL (13.0-18.0)
--- NOTE | 2023-09-19 17:34 | PTCARENOTE ---
Pt back from IR s/p paracentesis with 900ml off per report. bandaid on right abdomen.
received 2 units PRBC total. Repeat Hgb 9.8. notified. 3rd unit PRBC canceled.
Received pt this am V-paced with occasional a-paced beats. Now Afib with occasional V-paced beats. HR 65-67
O2 weaned to 2L NC.
Increased lower extremity edema. Left > right. Legs elevated.
Cathed for 180ml travis urine.
All other assessments unchanged.
[2023-09-19 17:40] LABS: Body Fluid Albumin 1.3 g/dl; Body Fluid LDH < 90 U/L
[2023-09-19 17:47] LABS: Body Fluid Polymorphonuclear 40.2 %; Body Fluid WBC 920 /CUMM
[2023-09-19 17:48] LABS: Body Fluid Mononuclear 59.8 %
[2023-09-19 17:49] LABS: Body Fluid Second Tech EYM
[2023-09-19] MEDS: ZENPEP DELAYED RELEASE CAPSULE 3 CAPSULE PO (18:07)
[2023-09-19] MEDS: LEXAPRO 10 MG PO (18:07)
--- NOTE | 2023-09-19 18:39 | CON.GS ---
Consultation
-
Requesting Provider: Jayda
Performing Provider: Tye
Reason for Consultation: Anemia
Medical History
-
Chief Complaint: weakness, pallor
History of Present Illness:
83M presented yesterday with fever, rigors, Dx PNA. Per pt request he went home with PO abx. took BP at home and called rescue. He admits to lacerations of his fingers getting off the plane 2 days ago with significant bleeding per his
impression. optomechanical engineer at the airport responded and achieved hemostasis with external bandages. He denies blood thinners. Denies abd pain at any point. Denies n/v
Allergies / Home Medications
Allergy/AdvReac Type Severity Reaction Status Date / Time
Sulfa (Sulfonamide Allergy Unknown Verified 09/19/23 02:56
Antibiotics)
�Medication �Instructions �Recorded �Confirmed �Type
amoxicillin 875 mg-potassium 1 tab PO BID #20 tabs 09/18/23 Rx
clavulanate 125 mg tablet
doxycycline hyclate 100 mg capsule 100 mg PO BID #20 caps 09/18/23 Rx
acetaminophen 500 mg tablet 1,000 mg PO Q6H PRN Pain 09/19/23 09/19/23 History
cyanocobalamin (vitamin B-12) 1,000 mcg PO DAILY 09/19/23 09/19/23 History
1,000 mcg capsule
escitalopram oxalate 10 mg tablet 10 mg PO DAILY 09/19/23 09/19/23 History
ferrous sulfate 27 mg iron tablet 27 mg PO DAILY 09/19/23 09/19/23 History
furosemide 20 mg tablet 40 mg PO DAILY 09/19/23 09/19/23 History
levothyroxine 112 mcg tablet 112 mcg PO DAILY 09/19/23 09/19/23 History
ocdibt-pphmhhce-qnefpkw 3 cap PO TID 09/19/23 09/19/23 History
36,000-114,000-180,000 unit
capsule,delay rel (Creon)
magnesium 500 mg tablet 15 mg PO DAILY 09/19/23 09/19/23 History
pantoprazole 40 mg tablet,delayed 40 mg PO DAILY 09/19/23 09/19/23 History
release
potassium chloride 10 mEq 10 meq PO DAILY 09/19/23 09/19/23 History
tablet,extended release (Klor-Con)
pramipexole 0.5 mg tablet 0.5 mg PO HS 09/19/23 09/19/23 History
tamsulosin 0.4 mg capsule 0.4 mg PO BID 09/19/23 09/19/23 History
Review of Systems
-
A 10 point review of systems was completed, and was negative except as per HPI.
Physical Exam
Vital Signs
Temp Pulse Resp BP Pulse Ox
99.5 F 60 22 100/49 100
09/19/23 16:25 09/19/23 18:30 09/19/23 18:30 09/19/23 18:00 09/19/23 18:30
09/18/23 09/19/23 09/20/23
06:59 06:59 06:59
Actual Weight 76.2 kg
Body Mass Index (BMI) 25.9
Lab Results
09/19/23 03:49
WBC 6.2 10^3/uL (4.8-10.8) 09/19/23 15:54
Hgb 9.8 g/dL (13.0-18.0) L D 09/19/23 15:54
Hct 29.3 % (39.0-52.0) L 09/19/23 15:54
Plt Count 80 10^3/uL (130-400) L 09/19/23 15:54
Abs Immat Gran (auto) 0.0 10^3/uL (0-0.05) 09/19/23 03:49
Neutrophils % 91.8 % (42.2-75.2) H 09/19/23 03:49
Physical Exam
General: Well Developed, Well Nourished and No Apparent Distress
GI: Soft, Non Tender and Non Distended
Skin: Warm and Dry
Neuro: AO x 3
Psych: Calm
Data Reviewed
-
CT Scan: Image Personally Visualized and interpreted, Report Reviewed by me and Discussed with Physician
Labs: Labs Reviewed by me and Discussed with Physician
Assessment / Plan
-
83M with anemia of unknown etiology in setting of recurrent pancreatic CA and thrombocytopenia, PNA and bacteremia
On admit hypotensive and anemic.
Vitals stabilized after PRBC transfusion.
Abd exam benign, soft nt partially reducible ventral hernia and RIH.
Known hx of robo whipple, reportedly positive margins and now with recurrence of panc CA and plan for [facility] adjuvant therapy.
Surgery consulted with concern for intra-abdominal bleed.
Underwent CT with no findings concerning for intra-abdominal nor retroperitoneal bleed.
Appropriate response to transfusion
Likely no role for surgery here, pls call with questions
[2023-09-19] MEDS: FLOMAX 0.400000000000000022 MG PO (19:40)
[2023-09-19] MEDS: FLEXBUMIN 100 IV (19:40)
--- NOTE | 2023-09-19 20:00 | PTCARENOTE ---
Pt resting comfortably no c/o pain. Updated on plan of care. Repeat hgb at 2100. WISE noted, lungs clear, aside from LLL crackles. 2L, 97%. Tolerating regular diet. Due to void by midnight. Will bladder scan as ordered.
--- NOTE | 2023-09-19 23:00 | PTCARENOTE ---
Pt incontinent of urine moderate amount. CHG provided. Resting comfortably. Condom Cath applied. Will monitor.
[2023-09-19] MEDS: MIRAPEX, GENERIC 0.5 MG PO (23:29)
[2023-09-20] VITALS (26 sets, daily range): BP systolic 95–143; BP diastolic 50–89; PULSE 60; O2SAT 99; BMI 26.6
[2023-09-20] MEDS: ZOSYN 50 IV ×3 (05:47→18:10)
[2023-09-20] MEDS: SYNTHROID 112 MCG PO (05:47)
--- NOTE | 2023-09-20 06:04 | PTCARENOTE ---
No change in previous assessment. AM labs pending. Will monitor.
[2023-09-20 06:10] LABS: Hematocrit 25.9 % (39.0-52.0); Mean Corp Hgb Conc. 34.7 g/dL (33.0-37.0); Mean Corpuscular Hgb 29.3 pg (27.0-31.0); Mean Corpuscular Volume 84.4 fL (80.0-94.0); Mean Platelet Volume 10.7 fL (7.4-10.4); Platelet Count 72 10^3/uL (130-400); Red Blood Cell Count 3.07 10^6/uL (4.70-6.10); Red Cell Dist. Width 14.7 % (11.5-14.5)
--- NOTE | 2023-09-20 06:15 | W.PN.HOSP.TC ---
Today's Communication/Plan
-
.
Assessment / Plan
Assessment / Plan
Physical Exam
General: No Apparent Distress and Conversant. Chronically ill looking.
HEENT: Normocephalic, Anicteric.
Respiratory: Limited with no wheezes.
Cardiac: S1/S2
GI: Soft, Non Tender, Non Distended and Normal Bowel Sounds
Rectal: No rectal bleeding
Genito-urinary: No Hematuria
Musculoskeletal: No Edema
Skin: Warm, no scratch velázquez.
Neuro: AO x 3, he followed commands.
Psych: Calm
# Septic shock/ E Coli bacteremia
Source can be GI/
Repeat Blood culture today
No hypotension
c/w IV Abx
Will have US guided paracentesis, no abd distention this morning, might be not feasible to aspirate , will f/w IR doctor.
No abd pain or nausea, tolerating diet
CT and chest x ray did not show definitive consolidation, pt denies aspiration event.
Lactic acid normal. No leukocytosis.
Appreciate ICU doctor/ ID doctor input
# Hemorrhagic shock, resolved. s/p 2 units of RBCs. HGB around 9.
# hyponatremia, c/w IVF
# Acute kidney injury, creatinine at 1.9
CKD stage IIIB ( creatinine 1.4-1.7 in 2022)
Start IVF
CT A/P no Hydronephrosis
# Urinary retention, c/w Flomax BID, monitor.
# Recently Dxed MRI evidence of CA pancreatic recurrence.
HX pancreatic CA in 2022 and had Whipple surgery 07/13 down in [place].
- Saw oncology at [facility], no plan for chemotherapy.
# Hx of necrotizing pancreatitis in 2022 two months after Whipple
# Hx of anastomotic ulcer s/p clipping in 2022. c/w IV PPI.
# Thrombocytopenia
# S/P Afib/ Pacemaker and watchman device
# Hx of hemorrhagic stroke, off AC
# Code status, he wanted full code
Total time spent to see the patient, examine the patient on the floor, review data and lab results, discuss treatment plan with patient, ICU doctor, family, nursing staff around 59 minutes
Anticipated Discharge: > 48 hours
Subjective/Interval History
-
Date of Service: September 20, 2023
He had good night with no pain issues, no fevers
Had mild retention but no dysuria
Objective Data
-
Labs:
Laboratory Results
09/19/23 09/20/23
21:09 05:43
WBC 6.0
Hgb 9.0 L 9.0 L
Hct 25.9 L
Plt Count 72 L
Sodium Pending
Potassium Pending
Chloride Pending
Carbon Dioxide Pending
BUN Pending
Creatinine Pending
Glucose Pending
Calcium Pending
Total Bilirubin Pending
AST Pending
ALT Pending
Alkaline Phosphatase Pending
Vital Signs:
Vital Signs
Temp Pulse Resp BP Pulse Ox
99.9 F 64 13 113/64 97
09/20/23 00:18 09/20/23 05:45 09/20/23 05:45 09/20/23 05:00 09/20/23 05:45
I&O
09/18/23 09/19/23 09/20/23
06:59 06:59 06:59
Intake Total 0 / 500 3270 / 3270
Output Total 430 / 430
Balance 0 / 500 2840 / 2840
[2023-09-20 06:37] LABS: ALT (SGPT) 20 U/L (0-50); AST (SGOT) 24 U/L (17-59); Albumin 2.5 g/dl (3.5-5.0); Alkaline Phosphatase 79 U/L (38-126); Blood Urea Nitrogen 42 mg/dl (9-20); Calcium 7.9 mg/dl (8.4-10.2); Carbon Dioxide 18 mmol/L (22-30); Chloride 109 mmol/L (98-107); Estimated Creatinine Clearance 28 ml/min; Glucose 94 mg/dl (70-99); Phosphorus 3.5 mg/dl (2.5-4.5); Potassium 4.1 mmol/L (3.5-5.1); Sodium 134 mmol/L (135-145); Total Bilirubin 1.3 mg/dl (0.2-1.3); Total Protein 5.1 g/dl (6.3-8.2); eGFR 34.57
[2023-09-20] MEDS: FLOMAX 0.400000000000000022 MG PO ×2 (08:09→20:25)
[2023-09-20] MEDS: NSS 1000 IV (08:09)
[2023-09-20] MEDS: ZENPEP DELAYED RELEASE CAPSULE 3 CAPSULE PO ×3 (08:09→16:40)
[2023-09-20] MEDS: LEXAPRO 10 MG PO (08:10)
[2023-09-20] MEDS: NSS (PRESERVATIVE FREE) 10 ML IV (08:10)
[2023-09-20] MEDS: PROTONIX IV 40 MG IV (08:10)
--- NOTE | 2023-09-20 08:30 | W.PN.INTV ---
Today's Communication / Plan
Recommendations
Up OOB as tolerated
Condom catheter
Replete K>4, Mg>2
Monitor fluid intake and caution with his volume status given he has small bilateral pleural effusions, small pericardial effusions and lower extremity edema - he ultimately needs to be restarted on his Lasix (home medication)
Keep MAP>65, SpO2 >88-94% (he has a Hx of COPD) --> considering he has a reported history of COPD, quit smoking in 2022, I will make a follow-up appointment with me for PFTs and possibly initiate maintenance inhalers. Unfortunately considering his
history of pancreatic cancer with recurrence he does not qualify for lung cancer screening via LDCT chest.
Patient is stable for transfer out of ICU to telemetry. Line Out Worker/Pulmonary service will now sign off. Please reconsult if there are any additional questions/concerns, or if patient's respiratory status deteriorates.
Assessment
-
Assessment: 83-year-old male non-smoker with a past medical history of pancreatic cancer with recurrence with a history of Whipple's procedure in June 2022, history of CVA, COPD, history of pancreatitis in August 2022, GERD and hypothyroidism who
presents with chills, low blood pressure and weakness. They had just moved down from [place] down to [place] to be closer to family given patient's history of recurrent pancreatic cancer. They saw a physician at [facility] yesterday and
after the appointment the patient developed chills. thought that he was having anxiety attack so he was given Xanax but he vomited this up. He actually did come to the ER on 09/18/2023, and there was a suspected left lower lobe pneumonia and
he was discharged on Augmentin and doxycycline. His Hb at that time was 7.9 + platelets were 101, with blood cultures collected and COVID antigen and flu swab negative. They had gone home as the patient was hungry and they thought that he would
possibly improve, however he did not and his blood pressure was low in the middle the night with his SBP in the 80s. When he came back to the ER his BP was 87/54, he was saturating 94% on room air and he was afebrile to 98.8 �F. Labs showed anemia
to 6.6, platelets 89, creatinine worsened to 1.8, lactate was normal at 0.8, and given concern for his low blood pressure with anemia he was admitted to the ICU for further care. Critical care services consulted for additional
management/recommendations.
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
Impression:
#Sepsis with E. coli bacteremia, suspicious for intra-abdominal source, possibly related to his history of recurrent pancreatic cancer s/p Whipple's procedure
#Acute anemia - doubt he has hemoperitoneum and this is likely due to sepsis with bone marrow suppression
#Thrombocytopenia
#Bilateral pleural effusions with small pericardial effusion and +1 lower extremity edema, suspicious for volume overload
#Elevated creatinine suspicious for MARY (however creatinine and BUN baseline unknown, but apparently he has a history of CKD)
#Hypoalbuminemia
#Abnormal CXR with retrocardiac opacity likely due to atelectasis in setting of small pleural effusions (seen on CT Abd/Pelvis)
#Ventral + right indirect inguinal hernias without evidence for obstruction
#Reported history of COPD, quit smoking tobacco in 2022
#Recurrent pancreatic cancer s/p Whipple's procedure
Plan:
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
may be best treated with chronic antibiotics. Considering he is still septic/bacteremic although not in shock, I would give 14 days of antibiotics from his last negative blood culture - defer to ID
- Follow-up blood cultures sensitivities - so far 3 blood CX are positive, and sensitivities are pending; ID species is also pending for the BCx drawn on 09/18
- Consult IR for paracentesis to rule out SBP --> performed it on 09/18 removing 900 cc of chylous appearing ascitic fluid - follow-up culture and cytopathology
� Trend H&H and transfuse to keep Hb >7 g/dL, plt >50 K
- General surgery consulted - recs appreciated
- Stop IV fluids as he is high risk of developing volume overload as he already has small bilateral pleural effusions, small pericardial effusion and lower extremity ankle edema; he also is tolerating his p.o. diet and appears nontoxic today at
bedside. Also BP is normotensive.
- Maintain SpO2 >88-94%
- Maintain MAP>65
- Replete electrolytes with K>4, Mg>2
- Maintain euglycemia with goal BG 140-180
- Renally dose all medications/ABx
- Continue his home meds
- Outpatient follow up with Onc
- prn nebulized bronchodilators
- Incentive spirometer encouraged
- PT/OT
- DVT ppx - in setting of acute anemia with 2 units PRBCs given on 09/18, would recommend continuing to hold chemical DVT prophylaxis for now until Hb stable for >48 to 72 hours and there is no clinical signs of bleeding - perhaps by tomorrow if Hb
stable and plt remain >50k then would start HSQ 5000 units q12hr
Patient is stable for transfer out of ICU to telemetry. Line Out Worker/Pulmonary service will now sign off. Thank you for allowing us to be involved in the care of this patient. Please reconsult if there are any additional questions/concerns, or if
patient's respiratory status deteriorates. Considering he has a reported history of COPD, quit smoking in 2022, I will make a follow-up appointment with me for PFTs and possibly initiate maintenance inhalers.
Data:
CT Abd/Pelvis with OR andn IV contrast 09-19-2023:
Bowel containing ventral and right inguinal hernias. No evidence of intestinal obstruction. Oral contrast reaches the right colon. Fluid is associated with each hernia. Therefore, incarceration/strangulation cannot be excluded.
Mild abdominopelvic fluid probably ascites. Not the typical density for hemorrhagic products. However, all blood cannot be excluded..Small pericardial effusion.
Small bilateral pleural effusions.
Mild left lower lung and minimal right lower lobe probable atelectasis.
Mild diverticulosis. No evidence of acute diverticulitis.
Mild fecal material in the colon.
Focal bladder wall thickening. Cystoscopy recommended when the patient is able
Mild prostate hypertrophy.
Postsurgical change of the stomach.
Splenic artery aneurysm measuring 2 cm.
Total time spent today was 55 minutes for this encounter. Time includes reviewing laboratory test/imaging results, reviewing pertinent medical records, obtaining and reviewing medical history, performing an appropriate exam, ordering medications,
tests and procedures. Time also includes documentation of this encounter, coordinating patient care and communicating with other healthcare professionals. Total time does not include separately billed tests performed on this date of service.
Subjective Dataa
Subjective Data
Date of Service:
Date of Service: September 20, 2023
Chief Complaint: Line Out Worker Follow Up
Subjective:
Pt seen and evaluated this AM. Febrile overnight to 100.4. This morning he looks very well, eating his food without any issues, at bedside and I answered all of her questions. He is saturating 98% on room air with BP 139/83. He denies
abdominal pain, chest pain, fevers or chills. He still feels a little winded when he tries to exert himself.
Review of Systems
General: Other (Negative unless mentioned above)
Objective Data
Data Reviewed
Vital Signs / I&O / Oxygen:
Vital Signs
Temp Pulse Resp BP Pulse Ox
97.9 F 60 13 123/77 98
09/20/23 07:55 09/20/23 09:00 09/20/23 09:00 09/20/23 09:00 09/20/23 09:00
Intake and Output
09/19/23 09/20/23 09/21/23
06:59 06:59 06:59
Intake Total 0 / 500 3270 / 3345 275 / 275
Output Total 430 / 430
Balance 0 / 500 2840 / 2915 275 / 275
SaO2 98
Nasal Cannula flow liters per 2
minute
Physical Exam
General: Respiratory Distress (negative), Comfortable, Chills (n), Sweats (n) and Good Appetite
HEENT: Normocephalic and Anicteric
Cardiovascular: S1-S2 and Peripheral Edema (trace LE ankle edema b/l)
Respiratory: Wheeze (negative), Crackles (Bibasilar), Rhonchi (negative) and Accessory Resp Muscle Use (negative)
GI: Soft, Non Distended and Non Tender
Neurology: AO x 3
Skin: Warm, Dry and Cyanosis (negative)
Labs/Micro/Reports
Lab Data
09/20/23 05:43
09/20/23 05:43
Microbiology
09/19/23 15:54 Blood/Venous Blood Culture - Preliminary
Positive culture in progress
09/19/23 15:54 Blood/Venous Gram Stain - Preliminary
09/19/23 17:07 Peritoneal Fluid Gram Stain - Preliminary
--- NOTE | 2023-09-20 08:31 | W.PN.ID1 ---
Date of Service
Date of Service: September 20, 2023
Today's Communication
continue with zosyn at this time, deescalate as sensitivities allow
Assessment / Plan
SBP
E coli Bacteremia
MARY +/- CKD
Anasarca
Recurrence of pancreatic cancer
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
- UA negative
- repeat blood cultures were sent, no growth to date
- sputum culture cancelled - low utility, alternative diagnosis
- continue with zosyn at this time, deescalate as sensitivities allow
- follow clinically
Chief Complaint
-: Bacteremia
Subjective / Review of Systems
Tmax 100.4 orally
bp stable without pressors
repeat blood cultures no growth to date
without leukocytosis
hgb up to 9
cr 1.9
lfts normal
Vital Signs / Physical Exam
Vital Signs
Vital Signs
Temp Pulse Resp BP Pulse Ox
99.9 F 64 13 113/64 97
09/20/23 00:18 09/20/23 05:45 09/20/23 05:45 09/20/23 05:00 09/20/23 05:45
Physical Exam
Constitutional: No Acute Distress and Chronically Ill
Cardiovascular: Regular Rate and S1/S2; Negative Murmur or Rub
Pulmonary: Clear and Symmetric; Negative Wheezes or Rales
Gastrointestinal: Soft, Non Tender, Non Distended and Normal Bowel Sounds
Skin: Warm and Dry; Negative Rash or Jaundice
Neurological: Awake and Alert
Objective Data
Lab Data
Lab Results
09/20/23 05:43
09/20/23 05:43
Estimated Creat Clear 28 ml/min 09/20/23 05:43
Lactic Acid Cancelled 05/29/24 16:45
Total Bilirubin 1.3 mg/dl (0.2-1.3) 09/20/23 05:43
AST 24 U/L (17-59) 09/20/23 05:43
ALT 20 U/L (0-50) 09/20/23 05:43
Alkaline Phosphatase 79 U/L (38-126) 09/20/23 05:43
Most recent labs reviewed.
Micro Results:
09/20/23 05:43 Blood Culture - Pending
Blood/Venous
09/19/23 17:07 Body Fluid Culture - Pending
Peritoneal Fluid Gram Stain - Preliminary
09/19/23 15:54 Blood Culture - Pending
Blood/Venous
--- NOTE | 2023-09-20 08:40 | PTCARENOTE ---
Assumed care of pt. VSS. Assessment as noted. IVF changed to NSS as ordered. AM meds given without issue. Condom cath in place but not urine OP at this time.
--- NOTE | 2023-09-20 12:44 | PTCARENOTE ---
Pt OOB to chair with walker and PT/OT. See note. VSS. IVF stopped. Assessment unchanged.
--- NOTE | 2023-09-20 15:29 | CM ---
CM following re: discharge planning.
Reviewed pt's chart, met with pt. Pt's spouse and daughter Xuan at bedside.
PT and OT evaluations noted - home PT recommended.Both pt and his family are aware, expressed their agreement. A list of VN vendors provided, [facility] preferred. A referral to [facility] made.
D/C plan: home to son's house in [place] [facility] with [facility] and family support. Family to transport at discharge.
CM will follow with discharge plan updates as hospitalization progresses
[2023-09-20] MEDS: FLEXBUMIN 100 IV (16:43)
--- NOTE | 2023-09-20 16:50 | PTCARENOTE ---
Wheezing noted with position change. Pt denies desire for neb but requesting O2. SpO2 98%. 2L nc applied. Pt stated feeling wet. Condom cath not applied and large incontinence noted.
[2023-09-20] MEDS: MIRAPEX, GENERIC 0.5 MG PO (22:00)
--- NOTE | 2023-09-20 23:00 | PTCARENOTE ---
Pt complaining of restless legs. Medication administered as ordered. Pt denies any other complaints. Pt reports comfortable positioning on not wanting to be turned at this time. No other changes in assessment noted. Will continue to monitor.
[2023-09-21] VITALS (15 sets, daily range): BP systolic 105–131; BP diastolic 50–81; BMI 27.2
[2023-09-21] MEDS: ZOSYN 50 IV ×2 (00:14→05:16)
[2023-09-21] MEDS: FLEXBUMIN 100 IV ×2 (00:14→08:15)
[2023-09-21 03:53] LABS: % Basophils 0.2 % (0-2); % Immature Granulocytes 0.6 % (0-0.5); % Lymphocytes 6.6 % (20.5-51.1); % Monocytes 6.8 % (1.7-9.3); % Neutrophils 81.8 % (42.2-75.2); Absolute Eosinophils 0.2 10^3/uL (0-0.7); Absolute Lymphocytes 0.3 10^3/uL (1.2-3.4); Absolute Monocytes 0.3 10^3/uL (0.1-0.6); Absolute Neutrophils 4.1 10^3/uL (1.4-6.5); Hematocrit 26.7 % (39.0-52.0); Mean Corp Hgb Conc. 33.7 g/dL (33.0-37.0); Mean Corpuscular Hgb 28.1 pg (27.0-31.0); Mean Corpuscular Volume 83.4 fL (80.0-94.0); Mean Platelet Volume 10.8 fL (7.4-10.4); Nucleated Red Blood Cells % 0 % (-); Platelet Count 73 10^3/uL (130-400); Red Cell Dist. Width 14.9 % (11.5-14.5)
[2023-09-21 04:19] LABS: ALT (SGPT) 16 U/L (0-50); AST (SGOT) 17 U/L (17-59); Albumin 2.8 g/dl (3.5-5.0); Alkaline Phosphatase 68 U/L (38-126); Blood Urea Nitrogen 36 mg/dl (9-20); Calcium 8.5 mg/dl (8.4-10.2); Carbon Dioxide 17 mmol/L (22-30); Chloride 109 mmol/L (98-107); Estimated Creatinine Clearance 35 ml/min; Glucose 97 mg/dl (70-99); Magnesium 2.2 mg/dl (1.6-2.3); Phosphorus 2.8 mg/dl (2.5-4.5); Potassium 3.8 mmol/L (3.5-5.1); Sodium 135 mmol/L (135-145); Total Bilirubin 1.1 mg/dl (0.2-1.3); Total Protein 5.3 g/dl (6.3-8.2); eGFR 45.91
[2023-09-21 04:24] LABS: NT-proBNP 9580 pg/ml
[2023-09-21] MEDS: SYNTHROID 112 MCG PO (05:16)
--- NOTE | 2023-09-21 06:34 | W.PN.HOSP.TC ---
Today's Communication/Plan
-
DC planning
PT/OT
Assessment / Plan
Assessment / Plan
Physical Exam
General: No Apparent Distress and Conversant. Chronically ill looking.
HEENT: Normocephalic, Anicteric.
Respiratory: Limited with no wheezes.
Cardiac: S1/S2
GI: Soft, Non Tender, Non Distended and Normal Bowel Sounds
Rectal: No rectal bleeding
Genito-urinary: No Hematuria
Musculoskeletal: No Edema
Skin: Warm, no scratch velázquez.
Neuro: AO x 3, he followed commands.
Psych: Calm
# Septic shock/ E Coli bacteremia
Source can be GI/. Urine culture was not sent because urine looked clear.
Repeat Blood culture 09/19. Ascitic fluid culture is pending.
No hypotension
c/w IV Abx
900 cc of chylous appearing ascitic fluid was evacuated through US guided paracentesis on 09/18.
No abd distention. No abd pain or nausea, tolerating diet
CT and chest x ray did not show definitive consolidation, pt denied aspiration event.
Lactic acid normal. No leukocytosis.
Appreciate ICU doctor/ ID doctor input
# Hemorrhagic shock, resolved. s/p 2 units of RBCs. HGB around 9.
# hyponatremia, resolving, can stop IVF
# Acute kidney injury, creatinine at 1.9, improved to baseline 1.5
CKD stage IIIB ( creatinine 1.4-1.7 in 2022)
s/p IVF
CT A/P no Hydronephrosis
# Urinary retention, c/w Flomax BID, monitor.
# Recently Dxed MRI evidence of CA pancreatic recurrence.
HX pancreatic CA in 2022 and had Whipple surgery 07/13 down in [place].
- Saw oncology at [place], no plan for chemotherapy.
# Hx of necrotizing pancreatitis in 2022 two months after Whipple
# Hx of anastomotic ulcer s/p clipping in 2022. c/w IV PPI.
# Thrombocytopenia. No active bleeding.
# S/P Afib/ Pacemaker and watchman device
# Hx of hemorrhagic stroke, off AC
# Code status, he wanted full code
Total time spent to see the patient, examine the patient on the floor, review data and lab results, discuss treatment plan with patient, nursing staff around 55 minutes
Anticipated Discharge: 24 - 48 hours
Subjective/Interval History
-
Date of Service: September 21, 2023
He feels better, asking about going home
Objective Data
-
Labs:
Laboratory Results
09/21/23
03:37
WBC 5.0
Hgb 9.0 L
Hct 26.7 L
Plt Count 73 L
Sodium 135
Potassium 3.8
Chloride 109 H
Carbon Dioxide 17 L
BUN 36 H
Creatinine 1.5 H
Glucose 97
Calcium 8.5
Total Bilirubin 1.1
AST 17
ALT 16
Alkaline Phosphatase 68
Vital Signs:
Vital Signs
Temp Pulse Resp BP Pulse Ox
97.6 F 66 14 123/62 99
09/21/23 03:40 09/21/23 06:15 09/21/23 06:15 09/21/23 06:00 09/21/23 06:15
I&O
09/19/23 09/20/23 09/21/23
06:59 06:59 06:59
Intake Total 0 / 500 3270 / 3345 975 / 975
Output Total 430 / 430 150 / 150
Balance 0 / 500 2840 / 2915 825 / 825
[2023-09-21] MEDS: FLOMAX 0.400000000000000022 MG PO ×2 (08:15→21:00)
[2023-09-21] MEDS: PROTONIX IV 40 MG IV (08:15)
[2023-09-21] MEDS: NSS (PRESERVATIVE FREE) 10 ML IV (08:15)
[2023-09-21] MEDS: LEXAPRO 10 MG PO (08:15)
[2023-09-21] MEDS: ZENPEP DELAYED RELEASE CAPSULE 3 CAPSULE PO ×3 (08:15→16:35)
[2023-09-21] MEDS: VITAMIN B-12 1000 MCG PO (08:15)
--- NOTE | 2023-09-21 09:29 | W.PN.ID1 ---
Addendum entered and electronically signed by Maliha Villatoro MD 09/21/23 09:57:
final day 09/30
Original Note:
Date of Service
Date of Service: September 21, 2023
Today's Communication
- start ciprofloxacin plan 2 week course - QTc is prolonged however with paced rhythm - decisions regarding prophylaxis per his oncology team
Assessment / Plan
SBP
E coli Bacteremia
MARY +/- CKD
Anasarca
Recurrence of pancreatic cancer
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
- UA negative
- repeat blood cultures were sent, no growth to date
- start ciprofloxacin plan 2 week course - QTc is prolonged however with paced rhythm - decisions regarding prophylaxis per his oncology team
- follow clinically
Chief Complaint
-: Bacteremia
Subjective / Review of Systems
afebrile
bp stable
without leukocytosis
cr 1.5
no abdominal pain
Vital Signs / Physical Exam
Vital Signs
Vital Signs
Temp Pulse Resp BP Pulse Ox
97.7 F 68 19 125/74 98
09/21/23 07:57 09/21/23 09:15 09/21/23 09:15 09/21/23 09:00 09/21/23 09:15
Physical Exam
Constitutional: No Acute Distress
Cardiovascular: Regular Rate and S1/S2; Negative Murmur or Rub
Pulmonary: Clear and Symmetric; Negative Wheezes or Rales
Gastrointestinal: Soft, Non Tender, Non Distended and Normal Bowel Sounds
Skin: Warm and Dry; Negative Rash or Jaundice
Objective Data
Lab Data
Lab Results
09/21/23 03:37
09/21/23 03:37
Estimated Creat Clear 35 ml/min 09/21/23 03:37
Lactic Acid Cancelled 09/19/23 16:45
Total Bilirubin 1.1 mg/dl (0.2-1.3) 09/21/23 03:37
AST 17 U/L (17-59) 09/21/23 03:37
ALT 16 U/L (0-50) 09/21/23 03:37
Alkaline Phosphatase 68 U/L (38-126) 09/21/23 03:37
Most recent labs reviewed.
Micro Results:
09/20/23 05:43 Blood Culture - Preliminary
Blood/Venous No Growth in 24 hours- Final report to follow
09/19/23 17:07 Body Fluid Culture - Preliminary
Peritoneal Fluid No Growth After 18-24 Hours
Gram Stain - Preliminary
09/19/23 15:54 Blood Culture - Preliminary
Blood/Venous Positive culture in progress
Gram Stain - Preliminary
--- NOTE | 2023-09-21 10:30 | TRANSFER ---
Pt transferred to [address] [place] [address] bed 1, with family. Report given to Malik CHEN
[2023-09-21] MEDS: CIPRO 500 MG PO ×2 (10:56→21:00)
--- NOTE | 2023-09-21 11:37 | CM ---
Addendum entered by Hector Bose 09/21/23 15:23:
Per RN request, CM met with pt again. Pt's spouse and pt's daughter at bedside. Both pt and his family are notified that [facility] accepted the pt for after halfway care. Pt's family asked when pt will be discharge. MD is notified to confirm
discharge date with the family.
IMM reviewed, placed on chart, pt has a copy.
Pt's spouse and pt's daughter stated that pt will stay in son's house for up to 2 months and will be moved to [facility] in [facility].
D/C plan: home to son's house in [place] [address] with [facility] and family support. Family to transport at discharge.
Original Note:
CM following re: discharge planning.
Reviewed pt's chart, met with pt. Pt's daughter Xuan at bedside.
Per rounds meeting, pt is downgraded from ICU level of care.
[facility] has accepted the pt for after care VN services.
Please fax discharge instructions to [facility] at [phone]
D/C plan: home to son's house in [place] [address] with [facility] and family support. Family to transport at discharge.
CM will follow with discharge plan updates as hospitalization progresses
--- NOTE | 2023-09-21 13:46 | PN.CDI ---
Addendum entered and electronically signed by Lauren Weiss MD 09/21/23 15:41:
Hemorrhagic shock is ruled out
Original Note:
CDI
- -
CDI:
Physician Documentation Request
Admit Date: 09/19/23 04:36
Dear Doctor Isela,
Please review the following and provide your response in the progress notes.
Clinical Indicators:
Pt admitted with sepsis/ shock
09/18 PN: 'Shock , possible combination of hemorrhagic and septic shock.'
09/18 Surgery note: 'CT with no findings concerning for intra-abdominal nor retroperitoneal bleed.'
09/19 [employer] note: 'Acute anemia - doubt he has hemoperitoneum ......'
Based on the above, could you please clarify if hemorrhagic shock is still an appropriate diagnosis.
Hemorrhagic shock is ruled out
Hemorrhagic shock is still a valid diagnosis
Other
Use of terms such as suspected, likely, concern for, or probable (associated with a specific diagnosis that is being evaluated, monitored, or treated as if it exists) are acceptable and can be coded in the inpatient setting, when documented at the
time of discharge.
Thank you,
Adelaida Mancilla RN, BSN
CDI Specialist
Available via [employer]
Please use your independent medical judgment in providing your response.
--- NOTE | 2023-09-21 17:07 | W.DCSUMMARY ---
Discharge Summary
Discharge Data
Date of Admission: 09/19/23
Date of Discharge: 09/22/23
-
Pending Results: No
Hospital Course
83 years old male who presented with fever, vomiting, lethargy and hypotension. Patient was found to have sepsis and septic shock. He was admitted to the intensive care unit and received intravenous antibiotics with fluid resuscitation. He was
followed by ICU doctor. He was found to have anemia. Patient had chronic anemia and recent acute blood loss anemia from a wound he sustained after a fall at home. He did not have active bleeding. Patient received 2 units of blood transfusion
with improvement of hemoglobin to 9. Patient was found to have E. coli bacteremia. Source was gastrointestinal. He had 900 cc of chylous appearing ascitic fluid evacuated through US guided paracentesis on 09/18. Ascitic fluid showed no growth. He
had imaging studies of the chest, abdomen and pelvis that did not show acute findings. He did not have pneumonia. Lactic acid was normal. He did not have leukocytosis. Repeat blood culture showed no growth. Patient was followed by surgery and
infectious diseases doctors. No indication for surgical intervention. Patient became hemodynamically stable and did not need further intravenous fluids. He had acute kidney injury. His baseline creatinine between 1.4-1.7. Discharge creatinine
was 1.5. Patient had chronic kidney disease stage IIIb. Scan of the abdomen and pelvis did not show hydronephrosis. Patient had history of recurrent pancreatic cancer. He was under evaluation for treatments with [facility] including
palliative care. Patient was evaluated by physical therapy and recommended home health services. Patient was discharged home in a stable condition.
Physical Exam
General: No Apparent Distress and Conversant. Chronically ill looking.
HEENT: Normocephalic, Anicteric.
Respiratory: Limited with no wheezes.
Cardiac: S1/S2
GI: Soft, Non Tender, Non Distended and Normal Bowel Sounds
Rectal: No rectal bleeding
Genito-urinary: No Hematuria
Musculoskeletal: No Edema
Skin: Warm, no scratch velázquez.
Neuro: AO x 3, he followed commands.
Psych: Calm. Pleasant.
Total discharge time spent to see the patient, examine the patient on the floor, review data and lab results, discuss discharge plan with patient, family, nursing staff around 65 minutes
Discharge Plan
-
Patient Disposition: Home with Home Care
Discharge Diagnosis/Procedures: E coli Bacteremia/sepsis
Spontaneous bacterial peritonitis
Hyponatremia
Thrombocytopenia
Anemia of chronic disease with acute blood loss anemia.
Recurrent pancreatic cancer
Acute kidney injury on chronic kidney disease stage IIIb
Anasarca
You are seen by infectious disease learning consultant, intensive care doctor surgery doctor. You were given intravenous antibiotic. Repeat blood culture remained with no growth. You received 2 units of blood transfusion.
Potential side effects of ciprofloxacin include tendinitis. Stop ciprofloxacin if you start to have muscle pain/joint pain and call your primary care physician. Included contact information for ID doctor if needed.
Diet: Low Fat
Referrals:
PRIVATE,PHYSICIAN [Family Provider] -
Maliha Villatoro MD [Active] - (As needed )
Prescriptions:
New
ciprofloxacin HCl 500 mg Tablet
500 mg PO BID Qty: 20 0RF
Continued
magnesium 500 mg Tablet
15 mg PO DAILY
potassium chloride [Klor-Con 10] 10 mEq Tablet Extended Release
10 meq PO DAILY
acetaminophen 500 mg Tablet
1,000 mg PO Q6H PRN (Reason: Pain)
pramipexole 0.5 mg Tablet
0.5 mg PO HS
tamsulosin 0.4 mg Capsule
0.4 mg PO BID
pantoprazole 40 mg Tablet,Delayed Release (Dr/Ec)
40 mg PO DAILY
furosemide 20 mg Tablet
40 mg PO DAILY
levothyroxine 112 mcg Tablet
112 mcg PO DAILY
escitalopram oxalate 10 mg Tablet
10 mg PO DAILY
ferrous sulfate 27 mg iron Tablet
27 mg PO DAILY
Creon 36,000-114,000- 180,000 unit Capsule,Delayed Release(Dr/Ec)
3 cap PO TID
Rx Instructions:
with meals and 2 with snacks
cyanocobalamin (vitamin B-12) 1,000 mcg Capsule
1,000 mcg PO DAILY
Discontinued
doxycycline hyclate 100 mg capsule
100 mg PO BID Qty: 20 0RF
amoxicillin-pot clavulanate 875-125 mg tablet
1 tab PO BID
Discharge Orders:
Discharge Patient (As Directed); Ordered 09/22/23
Ordered By: Lauren Weiss
Discharge Date and Time
Print Language: SETSWANA
[2023-09-21] MEDS: MIRAPEX, GENERIC 0.5 MG PO (21:27)
[2023-09-22 05:49] VITALS: BMI 26.9
[2023-09-22] MEDS: SYNTHROID 112 MCG PO (06:11)
[2023-09-22 07:00] VITALS: BP 129/71
[2023-09-22] MEDS: LEXAPRO 10 MG PO (08:00)
[2023-09-22] MEDS: VITAMIN B-12 1000 MCG PO (08:00)
[2023-09-22] MEDS: PROTONIX 40 MG PO (08:00)
[2023-09-22] MEDS: ZENPEP DELAYED RELEASE CAPSULE 3 CAPSULE PO (08:00)
[2023-09-22] MEDS: FLOMAX 0.400000000000000022 MG PO (08:00)
[2023-09-22] MEDS: CIPRO 500 MG PO (08:00)
--- NOTE | 2023-09-22 17:33 | CM ---
Patient with Dx Septic shock/ E Coli bacteremia. PT & OT recommend HH.
Met with patient and Sulema; both agree to d/c home today with [facility]. IMM completed yesterday per chart. will provide transport home today.
Message to [facility] notifying her of d/c today ([facility] fax [phone]).
Plan home today with VN.
--- NOTE | 2023-09-22 17:41 | CM ---
Patient with Dx Septic shock/ E Coli bacteremia. PT & OT recommend HH.
Met with patient and Sulema; both agree to d/c home today with Meryl Alberto. IMM completed yesterday per chart. will provide transport home today.
Message to [facility] notifying her of d/c today ([facility] fax [phone]).
Plan home today with Meryl Alberto.
== END 2023-09-22 11:37 | disposition home health service (06) | DRG 871 ==
LOC: 4 WEST ACU 04:36
PROVIDERS: Radiology Vascular & Interventional Radiology; ADMITTING PHYSICIAN Internal Medicine; ATTENDING PHYSICIAN Internal Medicine; CONSULT PHYSICIAN Internal Medicine Critical Care Medicine; CONSULT PHYSICIAN Student in an Organized Health Care Education/Training Program; CONSULT PHYSICIAN Surgery; EMERGENCY PHYSICIAN Student in an Organized Health Care Education/Training Program
PROC: 30233N1 Transfusion of Nonautologous Red Blood Cells into Peripheral Vein, Percutaneous Approach (ICD-10-PCS; 2023-09-19)
PROC: 0W9G3ZZ Drainage of Peritoneal Cavity, Percutaneous Approach (ICD-10-PCS; 2023-09-19)
DX: A41.51 Sepsis due to Escherichia coli [E. coli] (principal); K65.2 Spontaneous bacterial peritonitis; R57.8 Other shock; R65.21 Severe sepsis with septic shock; N17.9 Acute kidney failure, unspecified; J98.11 Atelectasis; R18.8 Other ascites; I31.39 Other pericardial effusion (noninflammatory); J90 Pleural effusion, not elsewhere classified; D62 Acute posthemorrhagic anemia; E87.1 Hypo-osmolality and hyponatremia; C25.9 Malignant neoplasm of pancreas, unspecified; E03.9 Hypothyroidism, unspecified; D63.8 Anemia in other chronic diseases classified elsewhere; K43.9 Ventral hernia without obstruction or gangrene; N40.0 Benign prostatic hyperplasia without lower urinary tract symptoms; I72.8 Aneurysm of other specified arteries; J44.9 Chronic obstructive pulmonary disease, unspecified; E88.09 Other disorders of plasma-protein metabolism, not elsewhere classified; R33.9 Retention of urine, unspecified; D69.6 Thrombocytopenia, unspecified; I48.91 Unspecified atrial fibrillation; N18.32 Chronic kidney disease, stage 3b; K21.9 Gastro-esophageal reflux disease without esophagitis; W19.XXXA Unspecified fall, initial encounter; Y93.9 Activity, unspecified; Y92.009 Unspecified place in unspecified non-institutional (private) residence as the place of occurrence of the external cause; Z88.2 Allergy status to sulfonamides; Z86.73 Personal history of transient ischemic attack (TIA), and cerebral infarction without residual deficits; Z90.411 Acquired partial absence of pancreas; Z95.0 Presence of cardiac pacemaker
CPT/HCPCS: 88305; 49083; 71046; 74177; 80053; 81003; 81015; 82042; 83605; 83615; 83735; 83880; 84100; 84157; 85018; 85025; 85027; 86850; 86900; 86901; 86920; 87015; 87040; 87070; 87149; 87186; 87205; 87502; 87811; 88112; 88341; 88342; 89051; 93005; 96374; 97116; 97162; 97166; 99283; 99284; P9016; P9047; Q9967